=== PATIENT | female | born 1955 | race Caucasian/White ===

== ENCOUNTER 2024-07-25 07:49 | Outpatient (CLI) | payer MEDICARE, SELFPAY ==
--- NOTE | 2024-08-04 11:25 | WPDHOMESLEEP ---
Sleep Study - Home Unattended Date of Study: 07/25/24 Ordering Provider: ALLEN Mg Interpreting Provider: Renay Howard MD Home Sleep Study Type: Watch PAT Height: 1.73 m Weight: 108.862 kg Body Mass Index: 36.5 Neck Circumference (inches): 15.5 [place]: 2 Reason for Sleep Study Loud snoring, restless poor quality sleep Sleep History Layla Faust is a 70-year-old woman with poor quality sleep. She reports that it takes a long time to fall asleep, and her sleep is not restful. She never awakens from sleep feeling short of breath. She rarely wakes at night with heartburn, belching or coughing.??She constantly snores, and this is constantly loud enough that others complain. She frequently has trouble sleeping when she has a cold. She never wakes up gasping for breath during the night. She never has breathing problems at night. She never sweats excessively at night. She never notices her heart pounding or beating irregularly during the night. She rarely falls asleep during the day. She never falls asleep involuntarily, never falls asleep while driving. She never experiences loss of muscle tone with strong emotion. She never feels paralyzed on waking or falling asleep. She never experiences vivid dreams upon waking or falling asleep. She never feels afraid of going to sleep. She rarely has nightmares. She rarely recalls her dreams. She occasionally has thoughts racing through her mind. She rarely feels sad or depressed. She occasionally feels anxiety. She never notices parts of her body jerk. She rarely kicks during the night. She occasionally feels crawling or aching feelings in her legs. She rarely feels leg pain at night. She never has morning jaw pain, and never grinds her teeth at night. She never feels bothered by pain during the day, is never awakened by pain during the night. She occasionally wakes up feeling stiff in the morning, occasionally wakes feeling sore or achy in the morning. She never awakens with pain in her neck, spine, or joints. She always has difficulty falling asleep. Normal bedtime is 10:30 p.m., always requiring at least an hour to fall asleep, waking at least 3 times at night. She wakes at 7:30 a.m., reports getting 7 hours of interrupted sleep per night. When she wakes at night, she goes to the bathroom, tosses and turns, requires 10 minutes or sometimes up to an hour to return to sleep. She keeps the same schedule on weekends. If she takes a nap in the afternoon or evening it may be very short. A short nap lasting 10-15 minutes might be refreshing. She is usually drowsy for 1 hour after waking. She feels better in the evening compared to other times of day. Habits:??Tobacco: Never smoker Caffeine: 1 cup per day Alcohol: none Recreational substances: none PMFSH Past Medical History Medical History Hyperlipidemia Diabetes Color blind Esophageal stricture Primary insomnia Left shoulder tendinitis Hypertension Type 2 diabetes mellitus Asthma Surgical History Surgical History History of knee surgery History of hysterectomy Family History Family History Mother Diabetes mellitus Father Diabetes mellitus Social History Social History Smoking status: Never smoker Alcohol intake: never Medications Home Medications ?Medication ?Instructions ?Recorded ?Confirmed ?Type empagliflozin 25 mg tablet 25 mg PO DAILY 06/23/24 06/28/24 History furosemide 40 mg tablet 40 mg PO QAM 06/23/24 06/28/24 History glimepiride 4 mg tablet 4 mg PO QAM 06/23/24 06/28/24 History lisinopril 2.5 mg tablet 2.5 mg PO DAILY 06/23/24 06/28/24 History metformin 750 mg tablet,extended 750 mg PO BID 06/23/24 06/28/24 History release 24 hr montelukast 10 mg tablet 10 mg PO QHS 06/23/24 06/28/24 History pantoprazole 40 mg granules 40 mg PO DAILY 06/23/24 06/28/24 History delayed-release for susp in packet tizanidine 2 mg capsule 2 mg PO TID PRN 06/23/24 06/28/24 History triamcinolone acetonide 0.1 % 1 applic topical BID 06/23/24 06/28/24 History topical cream mometasone-formoterol HFA 100 2 puff inhalation Q12H #39 grams 06/28/24 06/28/24 Rx mcg-5 mcg/actuation aerosol inhaler (Dulera) fluticasone 113 mcg-salmeterol 14 1 inh inhalation BID #1 ea 07/03/24 Rx mcg/actuation breath activated powdr ([employer]pi[employer]) Sleep Procedure The sleep study was completed using [employer] a technically adequate device with seven channels: peripheral arterial tone, actigraphy, body position, snore, respiratory movement, pulse oximetry, sleep staging, and heart rate. Prior to using the device, the patient received verbal and written instructions for its application and was provided with the help desk phone number for additional telephonic instruction with 24-hour availability of qualified personnel to answer questions. Sleep Architecture The total recording time is 8 hours 16 minutes. The total sleep time is 6 hours 59 minutes. Sleep latency is 19 minutes. REM latency is 75 minutes. The patient had 17 episodes of waking. Sleep architecture shows 25% % deep sleep, 47% light sleep, and 28% stage REM. The patient spent 266 minutes, 63% of total sleep time in the supine position. Sleep efficiency was 84% Respiratory Analysis The overall AHI is 33.4 using a 3% criteria. The apnea-hypopnea index using a 4% criteria is 17.7, moderately elevated. The central AHI is 0.3. The REM AHI was 45.9. The non-REM AHI was 28.5. The supine apnea-hypopnea index was 45.6 and the nonsupine AHI was 12.2. There was no evidence of Zacarias-Mcconnell respirations. Oximetry Data The oxygen desaturation index (STANLEY 4%:) is 18.3. The mean saturation is 91%, and the lowest saturation is 78%. Time spent with saturation < 88% is 13.6 minutes. Snoring Profile Snoring average intensity is 46 dB. The patient snored above 45 decibels for 214.7 minutes, 51.2% of sleep time. Cardiac Profile The average pulse is 67 beats per minute, the lowest pulse is 44 beats per minute, and the highest pulse is 108 beats per minute. Cardiac rhytm analysis in sleep did not detect suspected atrial fibrillation. Assessment and Plan Assessment and Plan (1) Obstructive sleep apnea: Code(s): G47.33 - Obstructive sleep apnea (adult) (pediatric) Status: Acute Assessment and Plan: This home sleep test using WatchPat on 07/25/2024 shows severe obstructive sleep apnea, the apnea-hypopnea index is 33.4 using 3% criteria, 17.7 using a 4% criteria, desaturation to 78% and moderate snoring. The patient spent 13.6 minutes, 3.2% the study at her below 88% saturation. Problems with insomnia are a large part of her symptom complex. For htis reason, I am recommending a CPAP titration in the sleep alb with a sleep aid to use, if needed, to get to sleep and stay asleep during the titration. Consider zolpidem 5 mg to 10 mg or eszopiclone 2 mg to 3 mg. She should not nap on the day of the study. AutoPAP is an option, but in-lab titration is preferred. BMI is 36. Weight management is advised. Clinical data suggests that weight loss of 10% can reduce the severity of respiratory events and snoring and improve AHI by as much as 25%. Her sleep questionnaire indicates that she has occasional crawling aching feelings in her legs at night. This may be part of the reason she has difficulty falling asleep. I recommend asking her about this symptomatology, how many nights a week she has it, relieving factors such as walking or massaging her legs. If she has is twice a week, I would recommend checking a ferritin level. Ferritin level is indicated to exclude iron deficiency anemia as a contributing factor. Ferritin should be 75 ng/mL or greater. If ferritin is below this, iron supplementation should be given to achieve ferritin of 75 ng/mL. There are nonpharmacologic methods to treat limb movements including daily exercise, stretching calf muscles before bed, avoiding excessive amounts of caffeine and alcohol, vitamin B supplementation, magnesium lotion massaged into legs before bed, and use of a weighted blanket. Data The data obtained during this sleep study is adequate for interpretation. Certification This sleep study has been reviewed by a board certified sleep medicine physician.
[2024-08-08 13:31] VITALS: BMI 36.5
== END 2024-07-27 13:07 | disposition home or self-care (01) ==
LOC: ANHCSM 07:50
PROVIDERS: Visit Provider Physician Assistant
DX: G47.33 Obstructive sleep apnea (adult) (pediatric) (principal); G47.10 Hypersomnia, unspecified
CPT/HCPCS: 95800

== ENCOUNTER 2024-09-04 08:06 | Outpatient (CLI) | payer MEDICARE, SELFPAY ==
--- OUTSIDE RECORDS SUMMARY | 2024-09-04 08:14 | XMS_ITS | Clinical Summary ---
Author Organization [facility] A Address [address] [place] [address] Care Team Providers Care Chemical Waste Management Technician Name Role Phone Gennaro Parsons MD Primary Care Provider Karon Farris Unavailable [phone] Allergies No known active allergies Medications furosemide (LASIX) 40 mg tablet Take 1 tablet (40 mg total) by mouth daily For leg swelling 30 tablet 11 01/06/20 22 Active budesonide-for moteroL (Symbicort) 80-4.5 mcg/actuation inhaler Inhale 2 puffs 2 (two) times a day Rinse mouth with water after use. Do not swallow. 3 each 3 12/16/19 23 Active tiZANidine (ZANAFLEX) 2 mg tablet Take 1 tablet (2 mg total) by mouth every 6 (six) hours as needed for muscle spasms For neck pain 30 tablet 3 07/12/19 24 Active triamcinolone (KENALOG) 0.1 % cream Apply to affected area 1-2 times daily as needed. Avoid face and groin.to rash of arm 30 g 5 07/12/19 24 Active montelukast (SINGULAIR) 10 mg tablet Take 1 tablet (10 mg total) by mouth nightly 90 tablet 3 07/12/19 24 Active lisinopriL (PRINIVIL,ZEST RIL) 2.5 mg tablet Take 1 tablet (2.5 mg total) by mouth daily 10 day fill, patient is waiting to receive mail order script. 90 tablet 3 10/12/[address] (PROTONIX) 40 mg EC tablet Take 1 tablet (40 mg total) by mouth daily 90 tablet 3 01/19/20 24 025 Active pioglitazone (ACTOS) 30 mg tabletIndicati ons:type 2 diabetes mellitus Take 1 tablet (30 mg total) by mouth daily To lower sugar 90 tablet 3 01/21/20 24 025 Active glimepiride (AMARYL) 4 mg tablet TAKE 1 TABLET DAILY BEFORE BREAKFAST 90 tablet 1 05/22/20 24 Active tirzepatide (Mounjaro) 2.5 mg/0.5 mL pen injector injectionIndic ations:type 2 diabetes mellitus,also sleep apnea Inject 0.5 mL (2.5 mg total) under the skin once a week Contact me in 4 weeks for next dose 2 mL 08/22/19 25 Active metFORMIN XR (GLUCOPHAGE XR) 750 mg 24 hr tablet Take 1 tablet (750 mg total) by mouth daily with breakfast 08/22/19 25 Active metFORMIN XR (GLUCOPHAGE XR) 750 mg 24 hr tablet TAKE 2 TABLETS (1,500 MG TOTAL) DAILY 180 tablet 3 11/24/19 24 025 Discontinued(Re order) empagliflozin (JARDIANCE) 25 mg tablet Take 1 tablet (25 mg total) by mouth daily To lower sugar 90 tablet 3 01/19/20 24 025 Discontinued Active Problems Problem Noted Date Diagnosed Date Severe obesity 08/21/2024 Esophageal stricture 07/12/2023 Class 1 obesity due to exces s calories without serious comorbidity with body mass index (BMI) of 33.0 to 33.9 in adult 06/21/2023 Assessment & Plan (06/21/2023 3:17 PM SCUBA DIVING INSTRUCTOR): Wt Readings from Last 3 Encounters: 06/21/23 101.1 kg (222 lb 14.4 oz) 12/24/22 97.1 kg (214 lb) 06/12/22 91.9 kg (202 lb 9.6 oz) BMI Readings from Last 3 Encounters: 06/21/23 33.39 kg/m 12/24/22 32.07 kg/m 06/12/22 30.53 kg/m Not at goal of bmi <30 Continue diet and exercise BMI Follow-up includes: nutrition counseling and exercise counseling. History of 2019 novel coronavirus disease (COVID -19) 06/12/2022 Left shoulder tendinitis 06/11/2021 Primary insomnia 06/11/2021 Hypertension 04/29/2018 Assessment & Plan (06/21/2023 3:17 PM SCUBA DIVING INSTRUCTOR): BP Readings from Last 3 Encounters: 06/21/23 142/78 12/24/22 116/78 06/12/22 110/78 Vitals BP 142/78 (BP Location: Right arm, Patient Position: Sitting) Pulse 98 Resp 16 Ht 174 cm (5' 8.5 ) Wt 101.1 kg (222 lb 14.4 oz) LMP (LMP Unknown) SpO2 96% BMI 33.39 kg/m Lab Results Component Value Date POTASSIUM 4.4 06/15/2022 Elevasted today Continue lisiopril 2.5 mg every day, lasix 40 mg every day Follow up with pcp Assessment & Plan (02/04/2019 9:16 AM CDT): Recommend DASH diet, heart-healthy lifestyle, exercise. Discussed the risks of hypertension. Assessment & Plan (04/29/2018 8:48 AM SCUBA DIVING INSTRUCTOR): Recommend DASH diet, heart healthy lifestyle, exercise. Discussed the risks of hypertension. Type 2 diabetes mellitus with hyperlipidemia Overview (08/28/2016): Type 2 diabetes mellitus with hyperglycemia Assessment & Plan (04/29/2018 8:49 AM SCUBA DIVING INSTRUCTOR): The patient was counseled on a heart-healthy, diabetic-friendly diet, as well as life-style modification. Education provided on the diagnosis and risks of the disease. We will continue to monitor routine labs. Additionally, the patient was counseled on routine diabetic eye exams, foot exams, and other preventive care. Assessment & Plan (06/09/2017 1:47 PM SCUBA DIVING INSTRUCTOR): Labs ordered today check on diabetes status but this time she was in need of a refill which I sent over refill for the glimepiride 4 mg q.day, metformin 750 mg 2 tabs q.day certainly consistent carb diet, increasing mild to moderate exercise 3 to 4 times a day was strongly encouraged will follow up with her regarding results of labs and need for additional changes in management and also in office in 6 months Asthma 07/21/2011 Overview (08/26/2016): ASTHMA NOS Assessment & Plan (06/21/2023 3:22 PM SCUBA DIVING INSTRUCTOR): Stable at [facility] time Has been using her in [place] frequently but doing okay Mostly its the cough botherign her Assessment & Plan (06/09/2017 1:46 PM SCUBA DIVING INSTRUCTOR): No audible cough in office today patient remains asymptomatic clinically. I recommended her staying on the Advair 250/50 mcg dose twice daily I did offer her a refill of ProAir to which he declined at this time. We discussed doing a spirometry test which she does not think is necessary at this time but we will keep this in mind if the dry cough persist. Certainly for any additional needs regarding asthma to follow up in our office otherwise will see her here in 6 months for follow-up regarding asthma Resolved Problems Problem Noted Date Diagnosed Date Resolved Date Biceps tendonitis, right 05/21/2020 Overview (05/21/2020): Added automatically from request for surgery [id number] Arthritis of right acromioclavicular joint 03/29/2020 06/11/2021 Biceps tendinitis of right upper extremity 03/29/2020 06/11/2021 Superior glenoid labrum lesi on of right shoulder 03/29/2020 06/11/2021 Lateral epicondylitis, right elbow 03/29/2020 06/11/2021 Pain in joint involving upper arm, right 11/27/2019 06/11/2021 Assessment & Plan (11/27/2019 10:23 AM CDT): Please refer to care plan detailed under chronic right shoulder pain is given chronicity and diffuse dose of pain recommending MRI, consultation further evaluation for possible biceps or rotator cuff injury Chronic right shoulder pain 11/27/2019 11/27/2019 Assessment & Plan (11/27/2019 10:23 AM CDT): Neurovascularly intact with notable chronic pain w/o acute falls or clinical exam indicating any concern with shoulder fracture. Recommending consultation to orthopedist for further evaluation, Pt would like to move forward with imaging before consultation therefore given diffuse right upper extremity pain recommending MRI of right shoulder, elbow w/o contrast looking into any possible bicep injury. Cnt. With limiting daily activities, ice or heat, topical creams and trial of corticosteroids for acute pain relief. Further direction pending upcoming imaging, consultation. BMI 36.0-36.9,adult 06/09/2017 06/21/19 24 Assessment & Plan (04/29/2018 8:49 AM SCUBA DIVING INSTRUCTOR): The patient was counseled on the importance of maintaining a healthy weight and the risks of obesity. Weight loss recommended. Assessment & Plan (06/09/2017 1:30 PM SCUBA DIVING INSTRUCTOR): Recommended patient to continue to increase heart healthy diet with adequate fruits, vegetables, and plenty of water along with mild-moderate daily exercise as tolerated. Screening, anemia, deficiency, iron 06/09/2017 06/11/2021 Assessment & Plan (06/09/2017 1:46 PM SCUBA DIVING INSTRUCTOR): Test ordered to check into anemia for annual screening. Certainly will follow the patient regarding any concerns noted the testing including any need for additional management Screening for thyroid disorder 06/09/2017 11/27/2019 Assessment & Plan (06/09/2017 1:45 PM SCUBA DIVING INSTRUCTOR): Screening test ordered for thyroid disease including TSH we can add further T4, T3 if indicated. Will follow patient regarding results of testing any for additional management Morbid obesity 07/21/2011 06/09/2017 Overview (08/27/2016): Obesity, morbid (more than 100 lbs over ideal weig Gastroesophageal reflux disease 07/21/2011 08/20/2020 Overview (08/28/2016): Esophageal Reflux Encounters Date Type Department Care Team Description 08/21/2024 9:15 AM CDT Office Visit [facility] Primary Care at [address] [address] Gennaro Parsons MD 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) (Primary Dx); BMI 37.0-37.9, adult; Moderate persistent asthma without complication; Esophageal stricture; Primary hypertension; Primary insomnia; Severe obesity (HCC) 08/21/2024 Telephone [facility] Primary Care at [address] [address] Gennaro Parsons MD Pre Cert (Medication Mounjaro) 08/21/2024 Orders Only [facility] Primary Care at [address] [phone] Gennaro Parsons MD Diabetic eye exam (HCC) (Primary Dx) 08/21/2024 Orders Only [facility] Care at [address] [address] Gennaro Parsons MD Screening for colon cancer (Primary Dx) 08/17/2024 Orders Only [facility] Primary Care at [address] [address] Gennaro Parsons MD 06/28/2024 Telephone [facility] Primary Care at [address] [address] Gennaro Parsons MD Appointment from Last 3 Months Immunizations Immunization Administration Dates Next Due Influenza, Quadrivalent, Spl it, Preservative Free, Intradermal 03/13/2015 Influenza, Quadrivalent, Spl it, Preservative Free, Intramuscular 06/12/2022,06/11/2021,02/07/2020,02/04 Influenza, Unspecified 08/21/2024(Deferr ed: Patient Refused),06/21/2023(Deferred: Patient Refused),02/16/2018 Pfizer SARS-CoV-2 Monovalent Vaccination (12+ Yrs) PURPLE 08/17/2020,07/23/2020 Pneumococcal Conjugate Pcv20 12/24/2022 Tdap 02/12/2014 Surgical History Surgery Date Site/Laterality Comments HYSTERECTOMY Hysterectomy KNEE SURGERY SHOULDER OPEN ROTATOR CUFF REPAIR 05/24/2021 - 05/23/2022 Right Medical History Medical History Date Comments Hx Other Medical color blind Hyperlipidemia Hyperlipidemia Hypertension Diabetes mellitus (HCC) Asthma Family History Medical History Relation Name Comments Diabetes Father Diabetes mellit us; Diabetes Mother Diabetes mellit us; Diabetes Other Family history of Diabetes mellitus; Relation Name Status Comments Father Mother Other Social History Tobacco Use Types Packs/Day Years Used Date Smoking Tobacco: Never Smokeless Tobacco: Never Tobacco Cessation:Counseling Given: Not Answered Alcohol Use Standard Drinks/Week Comments Yes 0 (1 standard drink = 0.6 oz pur e alcohol) AUDIT-C Answer Date Recorded Q1: How often do you have a drink containing alcohol? Never 07/13/2023 Q2: How many drinks containi ng alcohol do you have on a typical day when you are drinking? Patient does not drink Q3: How often do you have si x or more drinks on one occasion? Never 07/13/2023 PHQ-2 Answer Date Recorded PHQ-2 Total Score (If total score is 3 or more points, staff should administer the PHQ-9) 0 08/21/2024 Personal Safety Answer Date Recorded Have you ever been in or are you currently in a harmful physical or emotional relationship or is someone making you feel afraid or unsafe? Denies 07/14/2023 Comments No Sex and Gender Information Value Date Recorded Sex Assigned at Not on file Legal Sex Female 7:28 PM SCUBA DIVING INSTRUCTOR Gender Identity Not on file Sexual Orientation Not on file Obstetrics History Last Filed Vital Signs Vital Sign Reading Time Taken Comments Blood Pressure 122/74 08/21/2024 9:20 AM CDT Pulse 76 08/21/2024 9:20 AM CDT Temperature 36.8 C (98.2 F) 08/21/2024 9:20 AM CDT Respiratory Rate 16 08/21/2024 9:20 AM CDT Oxygen Saturation 98% 08/21/2024 9:20 AM CDT Inhaled Oxygen Concentration - - Weight 114.8 kg (253 lb) 08/21/2024 9:20 AM CDT Height 174 cm (5' 8.5 ) 08/21/2024 9:20 AM CDT Body Mass Index 37.91 08/21/2024 9:20 AM CDT Plan of Treatment Health Maintenance Due Date Last Done Comments Breast Cancer Screening-Mammogram 1955 Hepatitis C Screening 1955 Osteoporosis Screening-Bone Density Scan 1955 Hepatitis B Screening 11/02/1975 Zoster Vaccine (1 of 2) 11/02/2007 Dilated Eye Exam 09/21/2021 09/21/2020, 12/15/2017 Covid-19 Vaccine (4 - 2023-2 5 season) 2024 05/11/2021, 08/17/2020, 07/23/2020 DTaP/Tdap/Td Vaccine (2 - Td or Tdap) 02/13/2024 02/12/2014 Colon Cancer Screening-DNA Stool 07/14/2024 07/14/19, 12/28/2007 Well Visit 65+ 01/18/2025 01/19/2024, 0807/2022, 06/12/2022, Additional history exists Influenza Vaccine (Season Ended) 2025 06/12/2022, 06/11/2021, 02/07/2020, Additional history exists Hemoglobin A1C 02/17/2025 08/17/2024, 09/0 08/2023, 07/13/2023, Additional history exists Albumin Creatinine Ratio, Urine 08/17/2025 08/17/2024, 01/26/2024, 07/13/2023, Additional history exists Lipid Panel 08/17/2025 08/17/2024, 09/0 08/2023, 07/13/2023, Additional history exists eGFR 08/17/2025 08/17/2024, 09/0 08/2023, 07/13/2023, Additional history exists Depression Screening 08/21/2025 08/21/2024, 01/19/2024, 07/12/2023, Additional history exists Fall Risk Assessment 08/21/2025 08/21/2024, 01/19/2024, 07/12/2023, Additional history exists Foot Exam 08/21/2025 08/21/2024, 06/24, 06/12/2022, Additional history exists Colon Cancer Screening-CT Colonography Discontinued 12/28/2007 Colon Cancer Screening-Colonoscopy Discontinued 12/28/2007 Colon Cancer Screening-Sigmoidoscopy Discontinued 12/28/2007 Colon Cancer Screening-FIT Discontinued 07/14/2021, Pneumococcal vaccine 65+ Completed 12/24/2022 Medical Devices Implanted Type Area Net Solutions Architect Device Identifier Shelf Expiration Date Model / Serial / Lot [employer] 2504-1 Regenerate Tendon [place] Suture - [id number] Implanted:Qty: 1 on 05/30/2020 by Santiago Pan MD at [facility] Right: Shoulder [employer] 03/05/2023 2504-1 / / [id number] [employer]/Or tho [id number] [place] Bone With Arthroscopic Delivery System Advanced - [id number] Implanted:Qty: 1 on 05/30/2020 by Santiago Pan MD at [facility] Right: Shoulder [employer] tho 04/05/2023 [id number] / / [id number] [employer]hew/[employer]/Or tho 4566 Implant Large Arthroscopic Bioinductive W/ Delivery Device - [id number] Implanted:Qty: 1 on 05/30/2020 by Santiago Pan MD at [facility] Right: Shoulder [employer]/Or [employer] 03/06/2023 [id number] / / [id number] Procedures Procedure Name Priority Date/Time Associated Diagnosis Comments ALBUMIN CREATININE RATIO, URINE Routine 08/17/2024 10:08 AM CDT COMPREHENSIVE METABOLIC PANEL Routine 08/17/2024 10:08 AM CDT LIPID PANEL Routine 08/17/2024 10:08 AM CDT HEMOGLOBIN A1C Routine 08/17/2024 10:08 AM CDT STOOL DNA COLOGUARD Routine 07/14/2021 10:45 AM SCUBA DIVING INSTRUCTOR Screening for colorectal cancer DIABETIC EYE EXAM Routine 09/21/2020 HM DIABETES FOOT EXAM Routine 09/22/2018 COLONOSCOPY Routine 12/28/2007 from Last 3 Months or Most Recently Relevant to Health Maintenance Results * Albumin Creatinine Ratio, Urine (08/17/2024 10:08 AM CDT) Creatinine, ur 249 20 - 275 mg/dL [facility] Microalbumin, ur 0.8 See Note: mg/dL [facility] Comment: Reference Range: Reference Range Not established Microalbumin/creat ratio 3 <30 mg/g creat [facility] Comment: The ADA defines abnormalities in albumin excretion as follows: Albuminuria Category Result (mg/g creatinine) Normal to Mildly increased <30 Moderately increased 30-299 Severely increased > OR = 300 The ADA recommends that at least two of three specimens collected within a 3-6 month period be abnormal before considering a patient to be within a diagnostic category. 08/17/2024 10:0 8 AM CDT 08/17/2024 10:13 AM CDT Narrative [facility] - 08/18/2024 7:07 AM CDT FASTING:YES FASTING: YES us Gennaro Parsons MD LAB URINE ORDERABLES Fi nal Result [facility] [address] [place] [address] * (ABNORMAL) Hemoglobin A1c (08/17/2024 10:08 AM CDT) Hgb A1C 7.1(H) <5.7 % of total Hgb [facility] Comment: For someone without known diabetes, a hemoglobin A1c value of 6.5% or greater indicates that they may have diabetes and this should be confirmed with a follow-up test. For someone with known diabetes, a value <7% indicates that their diabetes is well controlled and a value greater than or equal to 7% indicates suboptimal control. A1c targets should be individualized based on duration of diabetes, age, comorbid conditions, and other considerations. Currently, no consensus exists regarding use of hemoglobin A1c for diagnosis of diabetes for children. 08/17/2024 10:0 8 AM CDT 08/17/2024 10:13 AM CDT Narrative [facility] - 08/18/2024 7:07 AM CDT FASTING:YES FASTING: YES us Gennaro Parsons MD LAB BLOOD ORDERABLES Fi nal Result [facility] [id number] [place] [address] * (ABNORMAL) Lipid panel (08/17/2024 10:08 AM CDT) Cholesterol 205(H) <200 mg/dL [facility] HDL 70 > OR = 50 mg/dL [facility] Triglycerides 107 <150 mg/dL [facility] LDL 114(H) mg/dL (calc) [facility] Comment: Reference range: <100 Desirable range <100 mg/dL for primary prevention; <70 mg/dL for patients with CHD or diabetic patients with > or = 2 CHD risk factors. LDL-C is now calculated using the Prince calculation, which is a validated novel method providing better accuracy than the Friedewald equation in the estimation of LDL-C. Rajan SANON et al. CASSANDRA. 2013;310(19): 7699-0466 (http://education.theBench.[employer]/faq/ZDN062) Chol/HDL ratio 2.9 <5.0 (calc) [facility] Non-HDL, (LDL+VLDL) 135(H) <130 mg/dL (calc) [facility] Comment: For patients with diabetes plus 1 major ASCVD risk factor, treating to a non-HDL-C goal of <100 mg/dL (LDL-C of <70 mg/dL) is considered a therapeutic option. 08/17/2024 10:0 8 AM CDT 08/17/2024 10:13 AM CDT Narrative [facility] - 08/18/2024 7:07 AM CDT FASTING:YES FASTING: YES us Gennaro Parsons MD LAB BLOOD ORDERABLES Fi nal Result [facility] [address] [phone] * (ABNORMAL) Comprehensive metabolic panel (08/17/2024 10:08 AM CDT) Glucose 143(H) 65 - 99 mg/dL [facility] Comment: Fasting reference interval For someone without known diabetes, a glucose value >125 mg/dL indicates that they may have diabetes and this should be confirmed with a follow-up test. BUN 14 7 - 25 mg/dL [facility] Creatinine 0.72 0.50 - 1.05 mg/dL [facility] eGFR 92 > OR = 60 mL/min/1.7 3m2 [facility] BUN/creat ratio SEE NOTE: 6 - 22 (calc) [facility] Comment: Not Reported: BUN and Creatinine are within reference range. Sodium 143 135 - 146 mmol/L [facility] Potassium, pl 3.9 3.5 - 5.3 mmol/L [facility] Chloride 108 98 - 110 mmol/L [facility] CO2 28 20 - 32 mmol/L [facility] Calcium 8.8 8.6 - 10.4 mg/dL [facility] Protein, sr 5.9(L) 6.1 - 8.1 g/dL [facility] Albumin 3.7 3.6 - 5.1 g/dL [facility] GLOBULIN 2.2 1.9 - 3.7 g/dL (calc) [facility] Alb/glob ratio 1.7 1.0 - 2.5 (calc) [facility] Bilirubin, total 0.4 0.2 - 1.2 mg/dL [facility] Alk phos 66 37 - 153 U/L [facility] AST 12 10 - 35 U/L [facility] ALT (SGPT) 15 6 - 29 U/L [facility] 08/17/2024 10:0 8 AM CDT 08/17/2024 10:13 AM CDT Narrative [facility] - 08/18/2024 7:07 AM CDT FASTING:YES FASTING: YES us Gennaro Parsons MD LAB BLOOD ORDERABLES Fi nal Result [facility] [address] [phone] * Stool DNA - Cologuard (07/14/2021 10:45 AM SCUBA DIVING INSTRUCTOR) Stool DNA - Cologuard Negative Negative [facility] (CLIA #:[id number]) Comment: NEGATIVE TEST RESULT. A negative Cologuard result indicates a low likelihood that a colorectal cancer (CRC) or advanced adenoma (adenomatous polyps with more advanced pre-malignant features) is present. The chance that a person with a negative Cologuard test has a colorectal cancer is less than 1 in 1500 (negative predictive value >99.9%) or has an advanced adenoma is less than 5.3% (negative predictive value 94.7%). These data are based on a prospective cross-sectional study of 10,000 individuals at average risk for colorectal cancer who were screened with both Cologuard and colonoscopy. (Amparo Medina al, N Engl J Med 2014;370(14):7103-7766) The normal value (reference range) for this assay is negative. COLOGUARD RE-SCREENING RECOMMENDATION: Periodic colorectal cancer screening is an important part of preventive healthcare for asymptomatic individuals at average risk for colorectal cancer. Following a negative Cologuard result, the [place] [employer] Society and U.S. Multi-Society Task Force screening guidelines recommend a Cologuard re-screening interval of 3 years. References: [place] [employer] Guideline for Colorectal Cancer Screening: https://www.cancer.org/cancer/uphfp-yrwgni-fqfzyj/saswzztya-ctseshsao-lryphtu/ac s-rec ommendations.html.; Jairon DK, Elisa CR, Daniel GarciaK, Colorectal Cancer Screening: Recommendations for Physicians and Patients from the U.S. Multi-Society Task Force on Colorectal Cancer Screening , Am J Gastroenterology 2017; 112:8063-3893. TEST DESCRIPTION: Composite algorithmic analysis of stool DNA-biomarkers with hemoglobin immunoassay. Quantitative values of individual biomarkers are not reportable and are not associated with individual biomarker result reference ranges. Cologuard is intended for colorectal cancer screening of adults of either sex, 45 years or older, who are at average-risk for colorectal cancer (CRC). Cologuard has been approved for use by the U.S. FDA. The performance of Cologuard was established in a cross sectional study of average-risk adults aged 50-84. Cologuard performance in patients ages 45 to 49 years was estimated by sub-group analysis of near-age groups. Colonoscopies performed for a positive result may find as the most clinically significant lesion: colorectal cancer [4.0%], advanced adenoma (including sessile serrated polyps greater than or equal to 1cm diameter) [20%] or non- advanced adenoma [31%]; or no colorectal neoplasia [45%]. These estimates are derived from a prospective cross-sectional screening study of 10,000 individuals at average risk for colorectal cancer who were screened with both Cologuard and colonoscopy. (Amparo Medina al, N Engl J Med 2014;370(14):1208-5561.) Cologuard may produce a false negative or false positive result (no colorectal cancer or precancerous polyp present at colonoscopy follow up). A negative Cologuard test result does not guarantee the absence of CRC or advanced adenoma (pre-cancer). The current Cologuard screening interval is every 3 years. ([place] [employer] and U.S. Multi-Society Task Force). Cologuard performance data in a 10,000 patient pivotal study using colonoscopy as the reference method can be accessed at the following location: www.[employer]/results. Additional description of the Cologuard test process, warnings and precautions can be found at www.ip.accessogIntrohiverd.com. Stool 07/14/2021 10:4 5 AM SCUBA DIVING INSTRUCTOR 07/15/2021 12:38 PM SCUBA DIVING INSTRUCTOR Gennaro Parsons MD LAB BODY FLUIDS AND STO OLS ORDERABLES Final Result [employer] (CLIA #:[id number]) [place] [place] [address] * Diabetic Eye Exam (09/21/2020) Historical Provider HEALTH MAINTENANCE Final Result * DIABETES FOOT EXAM (09/22/2018) Diabetic Foot Exam Normal Historical Provider HEALTH MAINTENANCE Final Result * Colonoscopy (12/28/2007) Anatomical Region Laterality Modality Other Historical Provider ENDOSCOPY PROCEDURES Katrin l Result from Last 3 Months or Most Recently Relevant to Health Maintenance Insurance [facility] [facility] [place] [facility] [place] BLUE CROSS MEDICARE SUPPLEMENT Advance Directives For more information, please contact: [phone] * Full Code (Latest Code Status on File) Date Activated Date Inactivated Comments 07/14/2023 9:26 AM 07/14/2023 4:06 PM * Full Code Date Activated Date Inactivated Comments 07/14/2023 9:26 AM 07/14/2023 9:26 AM Care Teams Chemical Waste Management Technician Relationship Specialty Start Date End Date Gennaro Parsons MD PCP - General 08/21/16 Karon Farris PA Physician Batch Operator Orthopedic Surgery 05/30/20
--- OUTSIDE RECORDS SUMMARY | 2024-09-04 08:14 | XMS_ITS | Encounter Summary ---
Author Organization [facility] Address [address] [place] [address] Phone Care Team Providers Care Desk Monitor Name Role Phone Gennaro Parsons MD Primary Care Provider Karon Farris Unavailable [phone] Encounter Details Date Type Department Care Team (Late st Contact Info) Description 06/14/2017 Orders Only [facility] ProviderSharita MD [address] [place] [id number] Social History Tobacco Use Types Packs/Day Years Used Date Smoking Tobacco: Never Smokeless Tobacco: Never Alcohol Use Standard Drinks/Week Comments Yes 0 (1 standard drink = 0.6 oz pur e alcohol) Comments Unknown Sex and Gender Information Value Date Recorded Sex Assigned at Not on file Legal Sex Female 7:28 PM CALL CENTER SUPERVISOR Gender Identity Not on file Sexual Orientation Not on file documented as of this encounter Plan of Treatment Not on file documented as of this encounter Procedures Procedure Name Priority Date/Time Associated Diagnosis Comments DISCHARGE LABORATORY CUMULATIVE REPORT 06/14/2017 12:00 AM CALL CENTER SUPERVISOR documented in this encounter Results * DISCHARGE LABORATORY CUMULATIVE REPORT (06/14/2017 12:00 AM CALL CENTER SUPERVISOR) Narrative 06/14/2017 12:00 AM CALL CENTER SUPERVISOR Ordered by an unspecified provider. Historical Provider LAB BLOOD ORDERABLES Katrin l Result documented in this encounter Visit Diagnoses Not on filedocumented in this encounter Additional Health Concerns Infection Onset Date Last Indicated Resolved Time COVID: Suspected 06/21/2023 06/21/2023 06/21/2023 3:29 PM CALL CENTER SUPERVISOR documented as of this encounter Care Teams Desk Monitor Relationship Specialty Start Date End Date Gennaro Parsons MD PCP - General 08/21/16 Karon Farris PA Physician Submarine Worker Orthopedic Surgery 05/30/20 documented as of this encounter
--- OUTSIDE RECORDS SUMMARY | 2024-09-04 08:14 | XMS_ITS | Referral Summary ---
Author Organization [facility] Medical [facility] Building A Address [address] [place] [address] Care Team Providers Care Joint Machine Operator Name Role Phone Gennaro Parsons MD Primary Care Provider Karon Farris Unavailable [phone] Encounters Date Type Department Care Team Description 08/21/2024 Telephone [facility] Medical Group Primary Care at [address] [address] Gennaro Parsons MD Pre Cert (Medication Mounjaro) 08/21/2024 Orders Only [facility] Medical [facility] Primary Care at [address] [phone] Gennaro Parsons MD Diabetic eye exam (HCC) (Primary Dx) 08/21/2024 Orders Only [facility] Medical [facility] Primary Care at [address] [phone] Gennaro Parsons MD Screening for colon cancer (Primary Dx) 08/21/2024 9:15 AM CDT Office Visit [facility] Medical [facility] Primary Care at [address] [phone] Gennaro Parsons MD 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) (Primary Dx); BMI 37.0-37.9, adult; Moderate persistent asthma without complication; Esophageal stricture; Primary hypertension; Primary insomnia; Severe obesity (HCC) 08/17/2024 Orders Only [facility] Medical Group Primary Care at [address] [place] [address] Gennaro Parsons MD 06/28/2024 Telephone [facility] Medical Group Primary Care at [address] [place] [address] Gennaro Parsons MD Appointment from Last 3 Months Allergies No known active allergies Medications furosemide [...] 06/21/2023 Assessment & Plan (06/21/2023 3:17 PM ADMISSION NURSE): Wt Readings from Last 3 Encounters: 06/21/23 [...] 04/29/2018 Assessment & Plan (06/21/2023 3:17 PM ADMISSION NURSE): BP Readings from Last 3 Encounters: 06/21/23 [...] hypertension. Assessment & Plan (04/29/2018 8:48 AM ADMISSION NURSE): Recommend DASH diet, heart healthy lifestyle, exercise. Discussed the risks of hypertension. Type 2 diabetes mellitus with hyperlipidemia Overview (08/28/2016): Type 2 diabetes mellitus with hyperglycemia Assessment & Plan (04/29/2018 8:49 AM ADMISSION NURSE): The patient was counseled on a heart-healthy, diabetic-friendly diet, as well as life-style modification. Education provided on the diagnosis and risks of the disease. We will continue to monitor routine labs. Additionally, the patient was counseled on routine diabetic eye exams, foot exams, and other preventive care. Assessment & Plan (06/09/2017 1:47 PM ADMISSION NURSE): Labs ordered today check on diabetes status [...] NOS Assessment & Plan (06/21/2023 3:22 PM ADMISSION NURSE): Stable at [facility] time Has been using her in [place] frequently but doing okay Mostly its the cough botherign her Assessment & Plan (06/09/2017 1:46 PM ADMISSION NURSE): No audible cough in office today patient [...] (05/21/2020): Added automatically from request for surgery [id number] Arthritis of right acromioclavicular joint 03/29/2020 06/11/2021 [...] 24 Assessment & Plan (04/29/2018 8:49 AM ADMISSION NURSE): The patient was counseled on the importance of maintaining a healthy weight and the risks of obesity. Weight loss recommended. Assessment & Plan (06/09/2017 1:30 PM ADMISSION NURSE): Recommended patient to continue to increase heart healthy diet with adequate fruits, vegetables, and plenty of water along with mild-moderate daily exercise as tolerated. Screening, anemia, deficiency, iron 06/09/2017 06/11/2021 Assessment & Plan (06/09/2017 1:46 PM ADMISSION NURSE): Test ordered to check into anemia for annual screening. Certainly will follow the patient regarding any concerns noted the testing including any need for additional management Screening for thyroid disorder 06/09/2017 11/27/2019 Assessment & Plan (06/09/2017 1:45 PM ADMISSION NURSE): Screening test ordered for thyroid disease including TSH we can add further T4, T3 if indicated. Will follow patient regarding results of testing any for additional management Morbid obesity 07/21/2011 06/09/2017 Overview (08/27/2016): Obesity, morbid (more than 100 lbs over ideal weig Gastroesophageal reflux disease 07/21/2011 08/20/2020 Overview (08/28/2016): Esophageal Reflux Immunizations Immunization Administration Dates Next Due Influenza, Quadrivalent, Spl it, Preservative Free, Intradermal 03/13/2015 Influenza, Quadrivalent, Spl it, Preservative Free, Intramuscular 06/12/2022,06/11/2021,02/07/2020,02/04 Influenza, Unspecified 08/21/2024(Deferr ed: Patient Refused),06/21/2023(Deferred: Patient Refused),02/16/2018 Pfizer SARS-CoV-2 Monovalent Vaccination (12+ Yrs) PURPLE 08/17/2020,07/23/2020 Pneumococcal Conjugate Pcv20 12/24/2022 Tdap 02/12/2014 Social History Tobacco Use Types Packs/Day Years [...] on file Legal Sex Female 7:28 PM ADMISSION NURSE Gender Identity Not on file Sexual Orientation Not on file Last Filed Vital Signs Vital Sign Reading [...] 08/21/2024 9:20 AM CDT Plan of Treatment Not on file Medical Devices Implanted Type Area Straddle Bug Device Identifier Shelf Expiration Date Model / Serial / Lot [employer] 2504-1 Regenerate Tendon Poston Suture - [id number] Implanted:Qty: 1 on 05/30/2020 by Santiago Pan MD at [facility] Right: Shoulder [employer] 03/05/2023 2504-1 / / [id number] [employer]Or tho 4403 Poston Bone With Arthroscopic Delivery System Advanced - [id number] Implanted:Qty: 1 on 05/30/2020 by Santiago Pan MD at [facility] Right: Shoulder [employer]Or tho 04/05/2023 [id number] / / [id number] [employer] Nephew/[employer]/Or tho 4566 Implant Large Arthroscopic Bioinductive W/ Delivery Device - [id number] Implanted:Qty: 1 on 05/30/2020 by Santiago Pan MD at [facility] Right: Shoulder [employer]/Or tho 03/06/2023 [id number] / / [id number] Procedures Procedure Name Priority Date/Time Associated Diagnosis Comments ALBUMIN CREATININE RATIO, URINE Routine 08/17/2024 10:08 AM CDT COMPREHENSIVE METABOLIC PANEL Routine 08/17/2024 10:08 AM CDT LIPID PANEL Routine 08/17/2024 10:08 AM CDT HEMOGLOBIN A1C Routine 08/17/2024 10:08 AM CDT STOOL DNA COLOGUARD Routine 07/14/2021 10:45 AM ADMISSION NURSE Screening for colorectal cancer DIABETIC EYE EXAM [...] 08/18/2024 7:07 AM CDT FASTING:YES FASTING: YES Gennaro Parsons MD LAB URINE ORDERABLES Fi nal Result Performing Organization Address City/[facility] Co de Phone Number [facility] [address] [place] [address] * (ABNORMAL) Hemoglobin A1c (08/17/2024 10:08 AM CDT) Hgb A1C 7.1(H) <5.7 % of total Hgb [facility] Comment: For someone without known diabetes, [...] MD LAB BLOOD ORDERABLES Fi nal Result Performing Organization Address City/[facility]/ZIP Co de Phone Number [facility] [address] [place] [address] * (ABNORMAL) Lipid panel (08/17/2024 10:08 AM [...] LDL-C. Rajan SANON et al. CASSANDRA. 2013;310(19): 0505-3748 (http://education.[employer]/faq/BWD825) Chol/HDL ratio 2.9 <5.0 (calc) [facility] [...] 08/18/2024 7:07 AM CDT FASTING:YES FASTING: YES Gennaro Parsons MD LAB BLOOD ORDERABLES Fi nal Result [facility] [address] [place] [address] * (ABNORMAL) Comprehensive metabolic panel (08/17/2024 10:08 AM CDT) Pathologist [facility] Glucose 143(H) 65 - 99 mg/dL [facility] [...] LAB BLOOD ORDERABLES Fi nal Result [facility] [address] [phone] * Stool DNA - Cologuard (07/14/2021 10:45 AM ADMISSION NURSE) Stool DNA - Cologuard Negative Negative [employer] (CLIA #:[id number]) Comment: NEGATIVE TEST RESULT. A negative Cologuard [...] screened with both Cologuard and colonoscopy. (Amparo Archuleta et al, N Engl J Med 2014;370(14):3857-8659) The normal value (reference range) for this assay is negative. COLOGUARD RE-SCREENING RECOMMENDATION: Periodic colorectal cancer screening is an important part of preventive healthcare for asymptomatic individuals at average risk for colorectal cancer. Following a negative Cologuard result, the [place] Cancer Society and U.S. Multi-Society Task Force screening guidelines recommend a Cologuard re-screening interval of 3 years. References: [place] [employer] Guideline for Colorectal Cancer Screening: https://www.cancer.org/cancer/eqhow-vikcts-pgwuyy/xsmzaguqm-pqbcrcrvb-fasxeqn/ac s-rec ommendations.html.; Jairon DK, Elisa BRITO, Daniel GarciaK, Colorectal Cancer Screening: Recommendations for Physicians and Patients from the U.S. Multi-Society Task Force on Colorectal Cancer Screening , Am J Gastroenterology 2017; 112:6507-3769. TEST DESCRIPTION: Composite algorithmic analysis of stool [...] (Amparo Medina al, N Engl J Med 2014;370(14):9290-6596.) Cologuard may produce a false negative or false positive result (no colorectal cancer or precancerous polyp present at colonoscopy follow up). A negative Cologuard test result does not guarantee the absence of CRC or advanced adenoma (pre-cancer). The current Cologuard screening interval is every 3 years. ([place] [employer] Society and U.S. Multi-Society Task Force). Cologuard performance data in a 10,000 patient pivotal study using colonoscopy as the reference method can be accessed at the following location: www.[employer]/results. Additional description of the Cologuard test process, warnings and precautions can be found at www.[email or web address].com. Stool 07/14/2021 10:4 5 AM ADMISSION NURSE 07/15/2021 12:38 PM ADMISSION NURSE Gennaro Parsons MD LAB BODY FLUIDS AND STO OLS ORDERABLES Final Result [facility] (CLIA #:[id number]) [place] [address] [place] [address] * Diabetic Eye Exam (09/21/2020) Historical Provider HEALTH MAINTENANCE Final Result * DIABETES FOOT EXAM (09/22/2018) Diabetic Foot Exam Normal Historical Provider HEALTH MAINTENANCE Final Result * Colonoscopy (12/28/2007) Anatomical Region Laterality Modality Other Sharita Canales MD ENDOSCOPY PROCEDURES Katrin l Result from Last 3 Months or Most Recently Relevant to Health Maintenance Insurance [facility] [place] [id number] [facility] MEDICARE [facility] BLUE CROSS MEDICARE SUPPLEMENT Advance Directives For more information, please contact: [phone] * Full Code (Latest Code Status on File) Date Activated Date Inactivated Comments 07/14/2023 9:26 AM 07/14/2023 4:06 PM * Full Code Date Activated Date Inactivated Comments 07/14/2023 9:26 AM 07/14/2023 9:26 AM Care Teams Joint Machine Operator Relationship Specialty Start Date End Date Gennaro Parsons MD PCP - General 08/21/16 Karon Farris PA Physician [place] Mixer Operator Orthopedic Surgery 05/30/20
--- NOTE | 2024-09-20 16:03 | WPDSLEEPSTUD ---
Sleep Study Date of Study: 09/04/24 Ordering Provider: ALLEN Mg Interpreting Physician: Renay Howard MD Sleep Study Type: CPAP Titration Height: 1.73 m Weight: 108.862 kg Body Mass Index: 36.5 Neck Circumference (inches): 15.5 [place]: 2 Reason for Sleep Study * 07/25/2024 home sleep test using WatchPat; severe ROHAN, AHI 33.4 using 3% criteria, 17.7 using a 4% criteria, desaturation to 78%, moderate snoring, 13.6 minutes, 3.2% the study at her below 88% saturation, insomnia. She returns for a CPAP titration. Sleep History This history is from her 07/25/2024 home sleep test. Layla Faust is a 70-year-old woman with poor quality sleep. She reports that it takes a long time to fall asleep, and her sleep is not restful. She never awakens from sleep feeling short of breath. She rarely wakes at night with heartburn, belching or coughing.??She constantly snores, and this is constantly loud enough that others complain. She frequently has trouble sleeping when she has a cold. She never wakes up gasping for breath during the night. She never has breathing problems at night. She never sweats excessively at night. She never notices her heart pounding or beating irregularly during the night. She rarely falls asleep during the day. She never falls asleep involuntarily, never falls asleep while driving. She never experiences loss of muscle tone with strong emotion. She never feels paralyzed on waking or falling asleep. She never experiences vivid dreams upon waking or falling asleep. She never feels afraid of going to sleep. She rarely has nightmares. She rarely recalls her dreams. She occasionally has thoughts racing through her mind. She rarely feels sad or depressed. She occasionally feels anxiety. She never notices parts of her body jerk. She rarely kicks during the night. She occasionally feels crawling or aching feelings in her legs. She rarely feels leg pain at night. She never has morning jaw pain, and never grinds her teeth at night. She never feels bothered by pain during the day, is never awakened by pain during the night. She occasionally wakes up feeling stiff in the morning, occasionally wakes feeling sore or achy in the morning. She never awakens with pain in her neck, spine, or joints. She always has difficulty falling asleep. Normal bedtime is 10:30 p.m., always requiring at least an hour to fall asleep, waking at least 3 times at night. She wakes at 7:30 a.m., reports getting 7 hours of interrupted sleep per night. When she wakes at night, she goes to the bathroom, tosses and turns, requires 10 minutes or sometimes up to an hour to return to sleep. She keeps the same schedule on weekends. If she takes a nap in the afternoon or evening it may be very short. A short nap lasting 10-15 minutes might be refreshing. She is usually drowsy for 1 hour after waking. She feels better in the evening compared to other times of day. Habits:??Tobacco: Never smoker Caffeine: 1 cup per day Alcohol: none Recreational substances: none PMFSH Past Medical History Medical History Obstructive sleep apnea Hyperlipidemia Diabetes Color blind Esophageal stricture Primary insomnia Left shoulder tendinitis Hypertension Type 2 diabetes mellitus Asthma Surgical History Surgical History History of knee surgery History of hysterectomy Family History Family History Mother Diabetes mellitus Father Diabetes mellitus Social History Social History Smoking status: Never smoker Alcohol intake: never Medications Home Medications ?Medication ?Instructions ?Recorded ?Confirmed ?Type empagliflozin 25 mg tablet 25 mg PO DAILY 06/23/24 06/28/24 History furosemide 40 mg tablet 40 mg PO QAM 06/23/24 06/28/24 History glimepiride 4 mg tablet 4 mg PO QAM 06/23/24 06/28/24 History lisinopril 2.5 mg tablet 2.5 mg PO DAILY 06/23/24 06/28/24 History metformin 750 mg tablet,extended 750 mg PO BID 06/23/24 06/28/24 History release 24 hr montelukast 10 mg tablet 10 mg PO QHS 06/23/24 06/28/24 History pantoprazole 40 mg granules 40 mg PO DAILY 06/23/24 06/28/24 History delayed-release for susp in packet tizanidine 2 mg capsule 2 mg PO TID PRN 06/23/24 06/28/24 History triamcinolone acetonide 0.1 % 1 applic topical BID 06/23/24 06/28/24 History topical cream mometasone-formoterol HFA 100 2 puff inhalation Q12H #39 grams 06/28/24 06/28/24 Rx mcg-5 mcg/actuation aerosol inhaler (Dulera) fluticasone 113 mcg-salmeterol 14 1 inh inhalation BID #1 ea 07/03/24 Rx mcg/actuation breath activated powdr (AirDuo RespiClick) eszopiclone 2 mg tablet (Lunesta) 2 mg PO ONCE #1 tablet 08/09/24 Rx Sleep Procedure A full night polysomnogram using the [place] multi-channel system recorded the standard physiologic parameters including EEG, EOG, submentalis EMG, anterior tibialis EMG, EKG, body position, nasal and oral airflow using PAP device flow signal. Respiratory parameters of chest and abdominal movements were recorded with Respiratory Inductance Plethysmography belts. Oxygen saturation was recorded by pulse oximetry. Video monitoring was also performed. Sleep stages, periodic limb movements, and EEG arousals were scored in 30 second epochs according to the criteria of the AASM Scoring Manual. The Apnea-Hypopnea Index was calculated using CMS guidelines for definition of hypopnea with 4% O2 desaturations while scoring respiratory events. She took a sleep aid the beginning of the study, chose a small ResMed AirFit N30 fullface nasal mask, started at CPAP 7 cm, increased to 9 cm, last pressure was 11 cm. She had REM on all pressures. At CPAP 11 cm, she spent 77.5 minutes in bed, 10.5 minutes awake, 52 minutes in non-REM and 15 minutes in REM. Sleep efficiency was 86.5%. The residual apnea-hypopnea index was 0. Lowest saturation was 94%.REM occurred i nthe right lateral postion. Sleep Architecture The total recording time was 429.2 minutes. The total sleep time was 376.5 minutes. Sleep latency was 19.7 minutes. REM latency was 55.5 minutes. Sleep efficiency was 87.7%. The patient had 19 awakenings for an awakening index of 3.0. Wake after Sleep Onset time was 33.5 minutes. The patient spent 17.5 minutes, 4.6% of total sleep time in Stage N1. The patient spent 268.0 minutes, 71.2% in Stage N2. The patient spent 31.5 minutes, 8.4% in Stage N3. The patient spent 59.5 minutes, 15.8% in Stage REM. Respiratory Analysis The patient had 1 hypopneas, no obstructive apneas, 1 mixed apnea, and no central apneas for an overall Apnea Hypopnea Index of 0.3 events per hour. The REM Apnea Hypopnea Index was 0. The NREM Apnea Hypopnea Index was 0.4. The patient had a Central Apnea Hypopnea Index of 0. There were no Respiratory Effort Related Arousals. The Respiratory Disturbance Index is 0.5 events per hour. There was no evidence of Zacarias-Mcconnell Respirations. Arousals There were 51 total arousals for an arousal index of 8.1. There were 42 spontaneous arousals for an index of 6.7. There were 2 arousals due to respiratory events for an index of 0.3. There were no arousals due to periodic limb movements. There were 7 arousals due to isolated limb movements for an index of 1.1. Periodic Limb Movements The patient had 24 isolated limb movements with an index of 3.8. The patient had 38 periodic limb movements with index of 6.1. Patient had a total of 62 limb movements with a total limb movement index of 9.9. Oximetry Data The patient had an average oxygen saturation of 95.5% in sleep with a minimum oxygen saturation of 92.0% and a maximum oxygen saturation of 99.0%. The patient had 4 oxygen desaturations that were 4% or greater resulting in an Oxygen Desaturation Index of 0.6. The patient spent no time with an oxygen saturation below 88%. Snoring Profile Snoring was not present during the titration. Cardiac Profile The EKG showed normal sinus rhythm. The patient had an average pulse rate of 63.5 bpm with a minimum pulse rate of 54 bpm and a maximum pulse rate of 85 bpm. No arrhythmias noted. EEG Profile EEG was unremarkable, no evidence of seizures. Assessment and Plan Assessment and Plan (1) Obstructive sleep apnea: Code(s): G47.33 - Obstructive sleep apnea (adult) (pediatric) Status: Acute Assessment and Plan: This full night CPAP titration 09/04/2024 shows an acceptable pressure CPAP 11 cm using a small ResMed AirFit N30 nasal mask and heated humidity. At CPAP 11 cm, she spent 77.5 minutes in bed, 10.5 minutes awake, 52 minutes in non-REM and 15 minutes in REM. Sleep efficiency was 86.5%. The residual apnea-hypopnea index was 0. Lowest saturation was 94%. REM occurred in the right lateral position. The patient should be prescribed this ResMed equipment as well as tubing, filters and reservoir. This should be used with all episodes of sleep. Compliance should be reviewed within 31-90 days of starting therapy for usage greater than 4 hours per night greater than 70% of the nights. The patient should be asked about symptoms such as excessive daytime sleepiness, quality of sleep, decreased nocturia, increased mental functioning such as memory, mood, and concentration. BMI is 36. Weight management is advised. Clinical data suggests that weight loss of 10% can reduce the severity of respiratory events and snoring and improve AHI by as much as 25%. Her sleep questionnaire indicates that she has occasional crawling aching feelings in her legs at night. This may be part of the reason she has difficulty falling asleep. I recommend asking her about this symptomatology, how many nights a week she has it, relieving factors such as walking or massaging her legs. If she has is twice a week, I would recommend checking a ferritin level. Ferritin level is indicated to exclude iron deficiency anemia as a contributing factor. Ferritin should be 75 ng/mL or greater. If ferritin is below this, iron supplementation should be given to achieve ferritin of 75 ng/mL. There are nonpharmacologic methods to treat limb movements including daily exercise, stretching calf muscles before bed, avoiding excessive amounts of caffeine and alcohol, vitamin B supplementation, magnesium lotion massaged into legs before bed, and use of a weighted blanket. Data The data obtained during this sleep study is adequate for interpretation. Certification This sleep study has been reviewed by a board certified sleep medicine physician.
[2024-09-20 18:59] VITALS: BMI 36.5
== END 2024-09-05 06:48 | disposition home or self-care (01) ==
LOC: ANHCSM 08:06
PROVIDERS: Visit Provider Physician Assistant
DX: G47.33 Obstructive sleep apnea (adult) (pediatric) (principal)
CPT/HCPCS: 95811